=== PATIENT | male | born 1965 | race African-American/Black ===

== ENCOUNTER 2021-03-01 13:51 | Emergency (ER) | payer OTHER ==
[2021-03-01] MEDS ORDERED: Ketorolac Tromethamine 30 MG/ML VIAL ONE (15:48)
== END 2021-03-01 16:15 | disposition home or self-care (01) ==
LOC: ERS 13:51
DX: M54.41 Lumbago with sciatica, right side (principal); E11.9 Type 2 diabetes mellitus without complications; E03.9 Hypothyroidism, unspecified; E78.5 Hyperlipidemia, unspecified; I10 Essential (primary) hypertension; Z79.84 Long term (current) use of oral hypoglycemic drugs; Z79.899 Other long term (current) drug therapy
CPT/HCPCS: 96372; 99283; J1885